=== PATIENT | female | born 1970 | race Caucasian/White ===

== ENCOUNTER 2019-11-18 13:52 | Outpatient (CLI) | payer BC, SELFPAY ==
--- NOTE | ~2019-11-18 | XR_ITS ---
XR cervical spine min 6V 11/18/2019 14:52 Indication: Cervicalgia Procedure: 7 views of the cervical spine Comparison: No prior studies for comparison. Findings: Normal cervical alignment. There are mild uncinate degenerative change at multiple levels. No significant disc narrowing. Normal cervical alignment. No prevertebral soft tissue swelling. Odont oid process within normal limits. Lung apices are normal. No fracture or malalignment. Impression: 1: Mild cervical spondylosis. Reviewed, dictated and finalized at location A. A MAKER Impression: 1: Mild cervical spondylosis.
== END 2019-11-18 13:53 | disposition home or self-care (01) ==
PROVIDERS: Visit Provider Nurse Practitioner Family
DX: M47.892 Other spondylosis, cervical region (principal)
CPT/HCPCS: 72052

== ENCOUNTER → 2021-03-11 07:28 | Outpatient (CLI) | payer BC, SELFPAY ==
[2021-03-11 19:22] LABS: SARS-CoV-2 RNA PCR Negative
== END ==
PROVIDERS: PCP Internal Medicine; Visit Provider Internal Medicine Gastroenterology
DX: Z01.812 Encounter for preprocedural laboratory examination (principal); Z20.822 Contact with and (suspected) exposure to COVID-19
CPT/HCPCS: C9803; U0003; U0005

== ENCOUNTER 2021-03-14 00:48 | Day surgery (SDC) | payer BC, SELFPAY ==
[2021-03-04 10:42] VITALS: BMI 23.3
[2021-03-14 08:03] VITALS: BP 111/69; PULSE 50; RESP 16; TEMP 36.6; O2SAT 100; BMI 22.8
[2021-03-14] MEDS: LACTATED RINGERS 1,000 ML 150 ML IV CONT (08:30)
--- NOTE | 2021-03-14 08:45 | WPDANESEPPF ---
Anes - Initial Pre Proc Eval Procedure: Operation Date: 03/14/21 09:00 Proposed Procedures p Esophagogastroduodenoscopy & Screening Colonoscopy - Wicho Morris MD Date/Time: 03/14/21 08:45 Surgeon: Wicho Morris MD Pre Op Diagnosis: neoplasm screeing, Nausea, Vomiting Patient Data Age: 50 Gender: F Height: 5 ft 2 in Weight: 56.5 kg Last Vital Signs Temp 36.6 C 03/14/21 08:03 Pulse 50 L 03/14/21 08:03 Resp 16 03/14/21 08:03 BP 111/69 03/14/21 08:03 Pulse Ox 100 03/14/21 08:03 Allergies Allergy/AdvReac Type Severity Reaction Status Date / Time No Known Allergies Allergy Verified 03/14/21 07:58 Home Medications Medication Instructions Recorded Confirmed Type cetirizine 10 mg tablet 10 mg PO DAILY #90 tablet 10/01/20 03/04/21 Rx meclizine 25 mg tablet 25 mg PO DAILY PRN #30 tablet 10/01/20 03/04/21 Rx ondansetron HCl 8 mg tablet 8 mg PO Q8H PRN #30 tablet 11/11/20 03/04/21 Rx amitriptyline 25 mg tablet 25 mg PO QHS #30 tablet 01/13/21 03/04/21 Rx sod picosulf 10 mg-magnes 3.5 160 ml PO BID #160 ml 01/20/21 Rx gram-citric 12 gram/160 mL oral solution fluticasone propionate 50 1 spray INTRANASAL DAILY #15.8 ml 02/16/21 03/04/21 Rx mcg/actuation nasal spray,suspension pantoprazole 20 mg tablet,delayed 20 mg PO DAILY #90 tablet 02/17/21 03/04/21 Rx release Patient hx anesthesia problems: none Family hx anesthesia problems: none PMFSH Past Medical History Medical History Allergies Anxiety Cholecystectomy planned 2016 Cyclic vomiting syndrome Headache Marijuana smoker Migraine Nausea and vomiting in adult Tonsillectomy planned 1977 Urine incontinence Bladder sling, 2017 Surgical History Surgical History History of hysterectomy 2016 Family History Family History Mother Breast cancer Parkinsons disease Social History Social History Smoking status: Never smoker Alcohol intake: former Substance use: current Substance use type: marijuana Other substance usage details: 3-4 TIMES PER WEEK Living arrangements: with family Spiritual care concerns: No Anes - Eval Final PreProcedure Day of Procedure 03/14/21 08:45 Patient weight: normal Heart: regular rate and rhythm Lungs: clear to auscultation Airway: Mallampati scale class II Neurological: alert and oriented Last oral intake: >/= 8 hours ASA classification: II Emergent: no Anesthetic plan: proceed Anesthesia type and monitoring: general GIVS and standard monitoring Informed Consent: The patient's anesthetic plan and its attendant risks and benefits were discussed with the patient/family/POA. Questions were solicited and answers provided to the satisfaction of the patient/family/POA.
--- NOTE | 2021-03-14 08:55 | PM.HPGS ---
History of Present Illness History of Present Illness Consent: Risks, benefits, and alternatives have been discussed and questions answered. Patient agrees to proceed with procedure. Chief complaint: neoplasm screeing, Nausea, Vomiting Narrative: Beryl Farfan is a 50 year old female with history of cyclic vomiting better with zofran and elavil, also needs screening colonoscopy (never had one) Review of Systems Constitutional: Constitutional: Denies headache(s) and Denies weakness Eyes: Eyes: Denies blurry vision ENT: Reports Normal hearing present, Denies headache(s) and Denies neck pain Cardiovascular: Cardiovascular: Denies chest pain and Denies dyspnea Respiratory: Respiratory: Denies dyspnea Gastrointestinal: Gastrointestinal: Reports no additional gastrointestinal complaints Genitourinary: Genitourinary: Denies dysuria Musculoskeletal: Musculoskeletal: Denies neck pain Integumentary/Breasts: Skin/Breast: Denies dry skin Neurologic: Reports Normal hearing present, Denies headache(s) and Denies weakness Psychiatric: Psychiatric: Denies anxiety Endocrine: Endocrine: Denies change in body appearance Hematologic/Lymphatic: Hematologic/Lymphatic: Denies easy bleeding Allergic/Immunologic: Allergic/Immunologic: Denies urticaria PMFSH Past Medical History Medical History Allergies Anxiety Cholecystectomy planned 2016 Cyclic vomiting syndrome Headache Marijuana smoker Migraine Nausea and vomiting in adult Tonsillectomy planned 1977 Urine incontinence Bladder sling, 2017 Surgical History Surgical History History of hysterectomy 2017 Family History Family History Mother Breast cancer Parkinsons disease Social History Social History Smoking status: Never smoker Alcohol intake: former Substance use: current Substance use type: marijuana Other substance usage details: 3-4 TIMES PER WEEK Living arrangements: with family Spiritual care concerns: No Meds Home Medications and Allergies Home Medications Medication Instructions Recorded Confirmed Type cetirizine 10 mg tablet 10 mg PO DAILY #90 tablet 10/01/20 03/04/21 Rx meclizine 25 mg tablet 25 mg PO DAILY PRN #30 tablet 10/01/20 03/04/21 Rx ondansetron HCl 8 mg tablet 8 mg PO Q8H PRN #30 tablet 11/11/20 03/04/21 Rx amitriptyline 25 mg tablet 25 mg PO QHS #30 tablet 01/13/21 03/04/21 Rx sod picosulf 10 mg-magnes 3.5 160 ml PO BID #160 ml 01/20/21 Rx gram-citric 12 gram/160 mL oral solution fluticasone propionate 50 1 spray INTRANASAL DAILY #15.8 ml 02/16/21 03/04/21 Rx mcg/actuation nasal spray,suspension pantoprazole 20 mg tablet,delayed 20 mg PO DAILY #90 tablet 02/17/21 03/04/21 Rx release Allergies Allergy/AdvReac Type Severity Reaction Status Date / Time No Known Allergies Allergy Verified 03/14/21 07:58 Vital Signs Vital Signs - 24 hr 03/14/21 08:03 Temperature 97.8 F Pulse Rate 50 L Respiratory Rate 16 Blood Pressure 111/69 Pulse Oximetry 100 Exam Const: General: comfortable and no acute distress HENMT: General nose exam: Normal nares present Eyes: General: appearance normal, both eyes and all related structures Neck: Neck: no JVD Resp: Auscultation: clear to auscultation bilaterally Cardio: Rate: regular rate Rhythm: regular rhythm GI: Inspection: non-distended GI Palp: Yes Soft to palpation Skin: General skin exam: normal color Neuro: General: gait normal Speech: normal speech Extrem: General: normal to inspection Psych: Mental Status: mental status grossly normal Assessment and Plan Assessment and plan (1) Nausea and vomiting in adult: Code(s): R11.2 - Nausea with vomiting, unspecified Status: Acute Ass
[2021-03-14 09:43] VITALS: BP 112/65; PULSE 49; RESP 16; O2SAT 100
[2021-03-14 09:53] VITALS: BP 109/67; PULSE 54; RESP 16; O2SAT 100
[2021-03-14 10:03] VITALS: BP 122/69; PULSE 52; RESP 12; O2SAT 100
== END 2021-03-14 10:19 | disposition home or self-care (01) ==
PROVIDERS: PCP Internal Medicine; Visit Provider Internal Medicine Gastroenterology
PROC: 0DJ08ZZ Inspection of Upper Intestinal Tract, Via Natural or Artificial Opening Endoscopic (ICD-10-PCS; CPT 43235; principal; 2021-03-14 09:00)
DX: Z12.11 Encounter for screening for malignant neoplasm of colon (principal); D12.2 Benign neoplasm of ascending colon; D12.5 Benign neoplasm of sigmoid colon; K29.50 Unspecified chronic gastritis without bleeding; R11.15 Cyclical vomiting syndrome unrelated to migraine; G43.909 Migraine, unspecified, not intractable, without status migrainosus; F41.9 Anxiety disorder, unspecified; F12.90 Cannabis use, unspecified, uncomplicated; Z90.710 Acquired absence of both cervix and uterus
CPT/HCPCS: 45385; 43239; 88305; J2704; J7120

== ENCOUNTER 2024-07-29 08:56 | Outpatient (CLI) | payer BC, SELFPAY ==
[2024-07-30 19:08] LABS: FSH 88.7 mIU/mL
== END 2024-07-29 08:57 | disposition home or self-care (01) ==
LOC: ANHGOSHLAB 08:57
PROVIDERS: PCP Internal Medicine; Visit Provider Internal Medicine
DX: N95.1 Menopausal and female climacteric states (principal)
CPT/HCPCS: 36415; 83001

== ENCOUNTER 2025-03-23 01:01 | Day surgery (SDC) | payer BC, SELFPAY ==
[2025-03-18 10:31] VITALS: BMI 24.5
--- OUTSIDE RECORDS SUMMARY | 2025-03-23 01:04 | XMS_ITS | Referral Summary ---
Author Organization [facility] al Address [address] [place] [address] Care Team Providers Care Interpersonal Communications Professor Name Role Phone Jose Recinos DO Primary Care Provider [phone] Jose Recinos DO Unavailable [phone] Allergies Active Allergy Reactions Criticality Noted Date Comments Other Other (See comments),Unknown Low 021 Reaction: Medications fluticasone propionate (FLONASE) 50 mcg/actuation nasal spray Administer 2 sprays into affected nostril(s) daily 8 Active cetirizine (ZyrTEC) 5 mg tablet Take 1 tablet (5 mg total) by mouth daily Active atorvastatin (LIPITOR) 20 mg tablet Take 1 tablet (20 mg total) by mouth nightly 30 tablet 4 Active Active Problems Problem Noted Date Diagnosed Date Elevated troponin 02/28/2024 Nausea with vomiting 12/18/2016 Weight loss 12/18/2016 Jejunostomy present 12/18/2016 Immunizations Immunization Administration Dates Next Due Influenza, Quadrivalent, Spl it, Preservative Free, Intramuscular 12/25/2020(Deferred: Patient Refused) Social History Tobacco Use Types Packs/Day Years Used Date Smoking Tobacco: Former Cigarettes Cigars Smokeless Tobacco: Never Tobacco Cessation:Counseling Given: Not Answered AUDIT-C Answer Date Recorded Q1: How often do you have a drink containing alc ohol? Monthly or less 02/28/2024 Q2: How many drinks containi ng alcohol do you have on a typical day when you are drinking? 1 or 2 02/28/2024 Q3: How often do you have si x or more drinks on one occasion? Never 02/28/2024 Overall Financial Resource Strain (CARDIA) Answe r Date Recorded How hard is it for you to pa y for the very basics like food, housing, medical care, and heating? Not hard at all 12/24/2020 PRAPARE - Transportation Answer Date Re corded In the past 12 months, has l ack of transportation kept you from medical appointments or from getting medications? No 02/2021 In the past 12 months, has l ack of transportation kept you from meetings, work, or from getting things needed for daily living? No 12/24/2020 Personal Safety Answer Date Recorded Have you ever been in or are you currently in a harmful physical or emotional relationship or is someone making you feel afraid or unsafe? Denies 02/28/2024 Comments Unknown Sex and Gender Information Value Date Recorded Sex Assigned at Not on file Legal Sex Female 5:46 PM CDT Gender Identity Not on file Sexual Orientation Not on file Last Filed Vital Signs Vital Sign Reading Time Taken Comments Blood Pressure 126/51 02/28/2024 3:00 PM CDT Pulse 60 02/28/2024 4:00 PM CDT Temperature 36.4 C (97.6 F) 02/28/2024 3:00 PM CDT Respiratory Rate 18 02/28/2024 3:00 PM CDT Oxygen Saturation 98% 02/28/2024 3:00 PM CDT Inhaled Oxygen Concentration - - Weight 58.7 kg (129 lb 8 oz) 02/28/2024 4:55 AM CDT Height 160 cm (5' 3) 02/28/2024 4:55 AM CDT Body Mass Index 22.94 02/28/2024 4:55 AM CDT Plan of Treatment Not on file Procedures Procedure Name Priority Date/Time Associated Diagnosis Comments DIAGNOSTIC MAMMOGRAM BILATERAL W KRISTOPHER Routine 02/22/2016 8:59 AM CDT from Last 3 Months or Most Recently Relevant to Health Maintenance Results * Diagnostic Mammogram Bilateral W Kristopher (02/22/2016 8:59 AM CDT) Anatomical Region Laterality Modality Breast Bilateral Mammography 02/22/2016 8:59 AM CDT Narrative 02/22/2016 11:33 AM CDT TONIE GONSALEZ M.D. [place], FINAL REPORT The radiology attending physician has personally reviewed this study, and has reviewed and/or edited this written report and agrees with it. ACC# Date Time Exam [id number] February 22, 2016 08:59:00 [facility] [address] Diag Mammogram Bilateral Technologist(s): Analy Rivers; ; [id number] February 22, 2016 08:59:00 [facility] [address] Dig Breast Kristopher Mani Technologist(s): Analy Rivers; ; [id number] February 22, 2016 09:38:00 [facility] [address] Breast US unilateral, ltd L EXAMINATION: BILATERAL FULL FIELD DIGITAL DIAGNOSTIC MAMMOGRAM WITH CAD, DIGITAL BREAST TOMOSYNTHESIS BILATERAL AND LEFT BREAST SONOGRAM HISTORY: 45-year-old woman complaining of palpable area of concern within the left breast. MAMMOGRAM TECHNIQUE: Full field digital craniocaudal and mediolateral oblique views were obtained. Computer Aided Detection was performed with [employer].3 version 9.3. Digital breast tomosynthesis bilateral COMPARISON: 2011 and 2008. BREAST PARENCHYMAL COMPOSITION: The breasts are heterogeneously dense, which may obscure small masses. MAMMOGRAM FINDINGS: There is a subcentimeter focal asymmetry identified within the upper outer quadrant of the left breast posterior depth. There is no abnormality identified on mammogram in the area of palpable concern which was marked with a skin surface marker. There is no suspicious finding within the right breast. SONOGRAM FINDINGS: Directed sonogram of the area of palpable concern within the left breast was performed. No focal abnormal solid or cystic lesion is identified in the reported area of palpable concern. Directed sonogram of the 12:30 left breast about 4 cm above the nipple demonstrated a a benign cyst. Additional scattered cysts were also noted. Directed physical examination of the area of concern demonstrates no definite suspicious palpable abnormality at this time. IMPRESSION: 1) No suspicious mammographic or sonographic findings are identified in the reported area of palpable concern. Any further evaluation at this time should be based on clinical assessment. Continued follow-up breast physical examination is recommended. 2) Incidentally noted were scattered benign cysts. These were not located in the area of palpable concern. OVERALL FINAL ASSESSMENT: BI-RADS Category 2: Benign finding. Requested By: Dictated By: WIN BLOUNT on Feb 22 2016 10:07A This document has been electronically signed by: TONIE GONSALEZ M.D. on Feb 22 2016 11:33A [id number] Procedure Note Provider, MD Ebonie - 02/26/2017 TONIE GONSALEZ M.D. [place], FINAL REPORT The radiology attending physician has personally reviewed this study, and has reviewed and/or edited this written report and agrees with it. ACC# Date Time Exam [id number] February 22, 2016 08:59:00 [facility] [address] Diag Mammogram Bilateral Technologist(s): Analy Rivers; ; [id number] February 22, 2016 08:59:00 [facility] [address] Dig Breast Kristopher Mani Technologist(s): Analy Rivers; ; [id number] February 22, 2016 09:38:00 [facility] [address] Breast US unilateral, ltd L EXAMINATION: BILATERAL FULL FIELD DIGITAL DIAGNOSTIC MAMMOGRAM WITH CAD, DIGITAL BREAST TOMOSYNTHESIS BILATERAL AND LEFT BREAST SONOGRAM HISTORY: 45-year-old woman complaining of palpable area of concern within the left breast. MAMMOGRAM TECHNIQUE: Full field digital craniocaudal and mediolateral oblique views were obtained. Computer Aided Detection was performed with [employer] version 9.3. Digital breast tomosynthesis bilateral COMPARISON: 2011 and 2008. BREAST PARENCHYMAL COMPOSITION: The breasts are heterogeneously dense, which may obscure small masses. MAMMOGRAM FINDINGS: There is a subcentimeter focal asymmetry identified within the upper outer quadrant of the left breast posterior depth. There is no abnormality identified on mammogram in the area of palpable concern which was marked with a skin surface marker. There is no suspicious finding within the right breast. SONOGRAM FINDINGS: Directed sonogram of the area of palpable concern within the left breast was performed. No focal abnormal solid or cystic lesion is identified in the reported area of palpable concern. Directed sonogram of the 12:30 left breast about 4 cm above the nipple demonstrated a a benign cyst. Additional scattered cysts were alsonoted. Directed physical examination of the area of concern demonstrates no definite suspicious palpable abnormality at this time. IMPRESSION: 1) No suspicious mammographic or sonographic findings are identified in the reported area of palpable concern. Any further evaluation at this time should be based on clinical assessment. Continued follow-up breast physical examination is recommended. 2) Incidentally noted were scattered benign cysts. These were not located in the area of palpable concern. OVERALL FINAL ASSESSMENT: BI-RADS Category 2: Benign finding. Requested By: Dictated By: WIN BLOUNT on Feb 22 2016 10:07A This document has been electronically signed by: TONIE GONSALEZ M.D. on Feb 22 2016 11:33A [id number] Historical Provider MD [facility] MAMMO PROCEDURES Jojo l Result from Last 3 Months or Most Recently Relevant to Health Maintenance Insurance [employer] [place] [employer] [place] [employer] [place] Advance Directives For more information, please contact: [phone] * Full Code (Latest Code Status on File) Date Activated Date Inactivated Comments 02/28/2024 4:59 AM 02/28/2024 9:20 PM * Full Code Date Activated Date Inactivated Comments 12/24/2020 8:12 AM 12/25/2020 7:01 PM Care Teams Interpersonal Communications Professor Relationship Specialty Start Date End Date Jose Recinos DO PCP - General 01/19/17 Jose Recinos DO 01/19/17
--- OUTSIDE RECORDS SUMMARY | 2025-03-23 01:04 | XMS_ITS | CONTINUITY OF CARE DOCUMENT ---
Author Name sammie cochran Address Unknown Organization [facility] Address [address] [address] [place] [address] Phone [phone] Care Team Providers Care Utility Clerk Name Role Phone Paola Daniels MD Unavailable Paola Daniels MD Unavailable [phone] INS[employer]ANCE PROVID[employer] Payer name Policy type / Coverage type [place] red democrat ID [facility] [id number]
--- OUTSIDE RECORDS SUMMARY | 2025-03-23 01:04 | XMS_ITS | Clinical Summary ---
Author Organization [facility] al Address [address] [place] [address] Care Team Providers Care Ivory Carver Name Role Phone Jose Recinos DO Primary Care Provider [phone] Jose Recinos DO Unavailable [phone] Allergies Active Allergy Reactions Criticality Noted Date [...] it, Preservative Free, Intramuscular 12/25/2020(Deferred: Patient Refused) Surgical History Surgery Date Site/Laterality Comments NJ TUBE PLACEMENT 12/01/2016 N/A NJ TUBE PLACEMENT 12/01/2016 N/A HYSTERECTOMY Family History Medical History Relation Name Comments Breast cancer Mother Parkinsonism Mother Uterine cancer Sister Relation Name Status Comments Mother Sister Social History Tobacco Use Types Packs/Day Years [...] on file Sexual Orientation Not on file Obstetrics History Last Filed Vital Signs Vital Sign Reading [...] 02/28/2024 4:55 AM CDT Plan of Treatment Health Maintenance Due Date Last Done Comments Colon Cancer Screening-Colonoscopy 1968 Depression Screening 1968 Hepatitis C Screening 1968 DTaP/Tdap/Td Vaccine (1 - Tdap) 1979 Hepatitis B Screening 1986 Regular Well Visit/Exam 18-64 1986 Breast Cancer Screening-Mammogram 03/26/2018 03/26/2017, 02/22/2016 Zoster Vaccine (1 of 2) 2018 Influenza Vaccine (Season Ended) 2025 09/21/2017, 11/27/2016 Pneumococcal vaccine <65 Aged Out No longer eligible based on patient's age to complete this topic Procedures Procedure Name Priority Date/Time Associated Diagnosis [...] agrees with it. ACC# Date Time Exam [id number] February 22, 2016 08:59:00 [facility] [address] Diag Mammogram Bilateral Technologist(s): Analy Rivers; ; [id number] February 22, 2016 08:59:00 [facility] [address] Dig Breast Kristopher Mani Technologist(s): Analy Rivers; ; [id number] February 22, 2016 09:38:00 [facility] [address] Breast US unilateral, ltd L EXAMINATION: BILATERAL FULL FIELD DIGITAL DIAGNOSTIC MAMMOGRAM WITH CAD, DIGITAL BREAST TOMOSYNTHESIS BILATERAL AND LEFT BREAST SONOGRAM HISTORY: 45-year-old woman complaining of palpable area of concern within the left breast. MAMMOGRAM TECHNIQUE: Full field digital craniocaudal and mediolateral oblique views were obtained. Computer Aided Detection was performed with [employer] version 9.3. Digital breast tomosynthesis bilateral COMPARISON: [...] GONSALEZ M.D. on Feb 22 2016 11:33A [id number] Procedure Note Provider, MD Ebonie - 02/26/2017 TONIE GONSLAEZ M.D. [place], FINAL REPORT The radiology attending physician has personally reviewed this study, and has reviewed and/or edited this written report and agrees with it. ACC# Date Time Exam [id number] February 22, 2016 08:59:00 [facility] [address] Diag Mammogram Bilateral Technologist(s): Analy Rivers; ; [id number] February 22, 2016 08:59:00 [facility] [address] Dig Breast Kristopher Mani Technologist(s): Analy Rivers; ; [id number] February 22, 2016 09:38:00 [facility] [address] Breast US unilateral, ltd L EXAMINATION: BILATERAL FULL FIELD DIGITAL DIAGNOSTIC MAMMOGRAM WITH CAD, DIGITAL BREAST TOMOSYNTHESIS BILATERAL AND LEFT BREAST SONOGRAM HISTORY: 45-year-old woman complaining of palpable area of concern within the left breast. MAMMOGRAM TECHNIQUE: Full field digital craniocaudal and mediolateral oblique views were obtained. Computer Aided Detection was performed with [employer] version 9.3. Digital breast tomosynthesis bilateral COMPARISON: [...] GONSALEZ M.D. on Feb 22 2016 11:33A [id number] Historical Provider MD [facility] MAMMO PROCEDURES Jojo l Result from Last 3 Months or Most Recently Relevant to Health Maintenance Insurance [facility] Member Subscriber Plan / Payer (Ef fective 2020-Present) Name:Beryl Farfan Relation to Subscriber:Self Name:Beryl Farfan Payer ID:[id number] (NAIC) Group ID:[id number] Type:BC OTHER Address: [address] [place] [id number] [place] Advance Directives For more information, please contact: [phone] * Full Code (Latest Code Status on File) Date Activated Date Inactivated Comments 02/28/2024 4:59 AM 02/28/2024 9:20 PM * Full Code Date Activated Date Inactivated Comments 12/24/2020 8:12 AM 12/25/2020 7:01 PM Care Teams Ivory Carver Relationship Specialty Start Date End Date Jose Recinos DO PCP - General 01/19/17 oJse Recinos DO 01/19/17
--- OUTSIDE RECORDS SUMMARY | 2025-03-23 01:04 | XMS_ITS | Data Portability ---
Author Organization [facility] Address [address] [place] [address] Assessment No assessment recorded. Plan of Treatment Reminders Order Date Submit Date Provider Last Modified By Organization Details Last Modified Time Details Appointments None recorded. Lab pap, IG + HPV, cervical 2016 017 [facility], [address] [place] [address], [address], [place], [address], 7 09:22:26 bacterial vaginosis + vaginitis panel, vaginal 2016 017 [facility], [address] [facility], [address], [place], [address], 7 09:13:46 HSV (1+2) DNA, qual, PCR, unspecifi ed specimen 2016 017 [facility], [address] [place] [address], [address], [place], [address], 7 09:13:46 culture, vaginal/r ectal, streptoco ccus group B 2016 017 [facility], [address] [place] [address], [address], [place], [address], 7 09:13:47 urinalysi s, dipstick 2016 017 [facility] In-Office Order, Internal Use Only DO Not Attach Compendium DO Not Attach Compendium, Do Not Delete/merge, [id number] 7 05:01:58 urinalysi s, dipstick 2015 016 [email or web address] In-Office Order, Internal Use Only DO Not Attach Compendium DO Not Attach Compendium, Do Not Delete/merge, [id number] 6 17:58:30 pap, IG + HPV, cervical 2015 016 [facility], [address] [facility] [address] [facility], [address], [place], [address], 6 20:11:11 culture, urine 2015 016 [facility], [address] [facility] [address] [facility], [address], [place], [address], 6 06:10:09 Referral general surgeon referral - left breast mass, FH of breast CA-MOM 2015 016 [email or web address] Nadeen Guevara MD (Hematology&O ncology), [address] [facility], [place], [address], 6 17:13:59 urogyneco logist referral - BJ 2015 016 [email or web address] Mitch Koenig MD, [address], [place], [address], 7 12:44:34 Procedures None recorded. Surgeries None recorded. Imaging MAMMO, diagnosti c, digital, bilateral 2016 017 [email or web address] [facility], [address] [place], [address], 7 17:43:17 MAMMO, diagnosti c, digital, bilateral - left breast mass, FH of breast CA-MOM 2015 016 [email or web address] [facility], [address], [address], [address], 6 09:19:15 Medication Orders calcium 600 mg (as carbonate )-vitamin D3 20 mcg (800 unit) tablet 2016 017 [facility], [address] [place] [address], [id number], 7 15:48:43 multivita min tablet 2016 017 [facility], [address] [place] [address], [id number], 7 15:48:27 Myrbetriq 25 mg tablet,ex tended release 2015 016 [facility], [address] [place] [address], [id number], 6 17:58:34 Contrave 8 mg-90 mg tablet,ex tended release 2015 016 [facility] #16315, [address] [place] [address], [id number], 6 17:58:31 Patient TargetsNo targets recorded. Patient Instructions Encounter Date Encounter Id Patient Instructions Last Modified By Organization Details Last Modified Time 02/16/2016 [id number] When You Want to Lose Weight: Care Instructions [email or web address] Not available 02/17/2016 09:26:20 breast pain: care instructions [email or web address] Not available 02/16/2016 17:58:30 breast lumps: care instructions [email or web address] Not available 02/16/2016 17:58:31 kegel exercises [email or web address] Not available 02/17/2016 09:26:20 learning about mood disorders [email or web address] Not available 02/16/2016 17:58:31 03/21/2017 [id number] kegel exercises Not available 03/21/2017 16:15:22 kegel exercises: care instructions Not available 03/21/2017 16:15:22 mammogram: about this test reggie Not available 03/21/2017 15:06:00 fibrocystic breast changes: care instructions reggie Not available 03/21/2017 15:47:10 Reason for Referral Urogynecologist Referral for Cystocele [facility] Referring Physician: Cristopher Huber, RESTORATION TECHNICIAN, Encounter Date: 02/16/2016 General Surgeon Referral for Breast lump left breast mass, FH of breast CA-MOM Referring Physician: Cristopher Huber RESTORATION TECHNICIAN, Encounter Date: 02/16/2016 Results Created Date Observation Date Name Description Value Unit Range Abnormal Flag Note LastModifiedBy Organization Detail LastModifiedTime 03/21/20 17 03/23/2017 urina lysis , dipst ick Leukocytes Trace Not Available In-Offi ce Order Internal Use Only DO Not Attach Compendium DO Not Attach Compendium, Do Not Delete/merge, [id number] 03/21/2017 14:30:25 03/21/20 17 03/23/2017 urina lysis , dipst ick Nitrite negati ve Not Available In-Office Order Internal Use Only DO Not Attach Compendium DO Not Attach Compendium, Do Not Delete/merge, [id number] 03/21/2017 14:30:25 03/21/20 17 03/23/2017 urina lysis , dipst ick Urobilinogen .2 Not Available In-Of fice Order Internal Use Only DO Not Attach Compendium DO Not Attach Compendium, Do Not Delete/merge, [id number] 03/21/2017 14:30:25 03/21/20 17 03/23/2017 urina lysis , dipst ick Protein Negati ve Not Available In-Office Order Internal Use Only DO Not Attach Compendium DO Not Attach Compendium, Do Not Delete/merge, [id number] 03/21/2017 14:30:25 03/21/20 17 03/23/2017 urina lysis , dipst ick pH 5.5 Not Available In-Office Order Internal Use Only DO Not Attach Compendium DO Not Attach Compendium, Do Not Delete/merge, [id number] 03/21/2017 14:30:25 03/21/20 17 03/23/2017 urina lysis , dipst ick Blood Negati ve Not Available In-Office Order Internal Use Only DO Not Attach Compendium DO Not Attach Compendium, Do Not Delete/merge, 03/21/2017 14:30:25 03/21/20 17 03/23/2017 urina lysis , dipst ick Specific Daggett 1.020 Not Available In-Off ice Order Internal Use Only DO Not Attach Compendium DO Not Attach Compendium, Do Not Delete/merge, 03/21/2017 14:30:25 03/21/20 17 03/23/2017 urina lysis , dipst ick Ketone Negati ve Not Available In-Office Order Internal Use Only DO Not Attach Compendium DO Not Attach Compendium, Do Not Delete/merge, 03/21/2017 14:30:25 03/21/20 17 03/23/2017 urina lysis , dipst ick Bilirubin Negati ve Not Available In-Office Order Internal Use Only DO Not Attach Compendium DO Not Attach Compendium, Do Not Delete/merge, 03/21/2017 14:30:25 03/21/20 17 03/23/2017 urina lysis , dipst ick Glucose Negati ve Not Available In-Office Order Internal Use Only DO Not Attach Compendium DO Not Attach Compendium, Do Not Delete/merge, 03/21/2017 14:30:25 02/16/20 16 02/16/2016 urina lysis , dipst ick Leukocytes Trace Not Available In-Offi ce Order Internal Use Only DO Not Attach Compendium DO Not Attach Compendium, Do Not Delete/merge, 02/16/2016 16:22:52 02/16/20 16 02/16/2016 urina lysis , dipst ick Nitrite negati ve Not Available In-Office Order Internal Use Only DO Not Attach Compendium DO Not Attach Compendium, Do Not Delete/merge, 02/16/2016 16:22:52 02/16/20 16 02/16/2016 urina lysis , dipst ick Urobilinogen .2 Not Available In-Of fice Order Internal Use Only DO Not Attach Compendium DO Not Attach Compendium, Do Not Delete/merge, 02/16/2016 16:22:52 02/16/20 16 02/16/2016 urina lysis , dipst ick Protein Negati ve Not Available In-Office Order Internal Use Only DO Not Attach Compendium DO Not Attach Compendium, Do Not Delete/merge, 02/16/2016 16:22:52 02/16/20 16 02/16/2016 urina lysis , dipst ick pH 6.5 Not Available In-Office Order Internal Use Only DO Not Attach Compendium DO Not Attach Compendium, Do Not Delete/merge, 02/16/2016 16:22:52 02/16/20 16 02/16/2016 urina lysis , dipst ick Blood Negati ve Not Available In-Office Order Internal Use Only DO Not Attach Compendium DO Not Attach Compendium, Do Not Delete/merge, 02/16/2016 16:22:52 02/16/20 16 02/16/2016 urina lysis , dipst ick Specific Daggett 1.020 Not Available In-Off ice Order Internal Use Only DO Not Attach Compendium DO Not Attach Compendium, Do Not Delete/merge, 02/16/2016 16:22:52 02/16/20 16 02/16/2016 urina lysis , dipst ick Ketone Negati ve Not Available In-Office Order Internal Use Only DO Not Attach Compendium DO Not Attach Compendium, Do Not Delete/merge, 02/16/2016 16:22:52 02/16/20 16 02/16/2016 urina lysis , dipst ick Bilirubin Negati ve Not Available In-Office Order Internal Use Only DO Not Attach Compendium DO Not Attach Compendium, Do Not Delete/merge, 02/16/2016 16:22:52 02/16/20 16 02/16/2016 urina lysis , dipst ick Glucose Negati ve Not Available In-Office Order Internal Use Only DO Not Attach Compendium DO Not Attach Compendium, Do Not Delete/merge, 02/16/2016 16:22:52 02/16/20 16 02/18/2016 cultu re, urine urine culture, routine FINAL REPORT Not Available [facility] ([facility]) [address], [place], [address], 02/19/2016 06:10:09 02/16/20 16 02/18/2016 cultu re, urine result 1 MELISSA Jaramillo MIXED UROGE NITAL WESLEY LESS THAN 10,00 0 COLON IES/M L Not Available [facility] ([facility]) [address] [facility], [place], [address], 02/19/2016 06:10:09 02/17/20 16 02/21/2016 pap, IG + HPV, cervi deanna diagnosis: MELISSA Jaramillo NEGAT ANCA FOR INTRA EPITH ELIAL LESIO N AND ILANA LEUNG . Not Available [facility] ([facility]) [address] [facility], [place], [address], 02/21/2016 20:11:11 02/17/20 16 02/21/2016 pap, IG + HPV, cervi deanna specimen adequacy: MELISSA T SATIS FACTO RY FOR EVALU ATION . ENDOC ERVIC AL AND/O R SQUAM OUS METAP LASTI C CELLS (ENDO CERVI DEANNA COMPO NENT) ARE PRESE NT. Not Available [facility] ([facility]) [address] [facility], [place], [address], 02/21/2016 20:11:11 02/17/20 16 02/21/2016 pap, IG + HPV, cervi deanna performed by: MELISSA OTT CYTOClint Jaramillo (ASCP ) Not Available [facility] ([facility]) [address] [place], [address], 02/21/2016 20:11:11 02/17/20 16 02/21/2016 pap, IG + HPV, cervi deanna . . Not Available [facility] ([facility]) [address] [place], [address], 02/21/2016 20:11:11 02/17/20 16 02/21/2016 pap, IG + HPV, cervi deanna note: MELISSA Jaramillo THE PAP SMEAR IS A SCREE JING TEST AMANDEEP PEDRAZA TO AID IN THE DETEC TION OF LALIT LIGNA NT AND MALIG NANT CONDI TIONS OF THE UTERI NE CERVI X. IT IS NOT A DIAGN OSTIC PROCE DURE AND SHOUL D NOT BE USED THE SOLE MEANS OF DETEC TING CERVI DEANNA CANCE R. BOTH FALSE -POSI TIVE AND FALSE -NEGA TIVE REPOR TS DO OCCUR . Not Available [facility] ([facility]) [address] [place], [address], 02/21/2016 20:11:11 02/17/20 16 02/21/2016 pap, IG + HPV, cervi deanna test methodology: COMMEN T THIS LIQUI D BASED THINP REP(R ) PAP TEST WAS SCREDomingo PEDRAZA WITH THE USE OF AN IMAGE GUIDE Brenna Dennison. Not Available [facility] ([facility]) [address] [facility], [place], [address], 02/21/2016 20:11:11 02/17/20 16 02/21/2016 pap, IG + HPV, cervi deanna HPV aptima NEGATI VE negati ve THIS TEST DETEC TS FOURT EEN HIGH- RISK HPV TYPES (16/1 8/31/ 33/35 /39/4 5/ 51/52 /56/5 8/59/ 66/68 ) WITHO UT DIFFE RENTI ATION . Not Available [facility] ([facility]) [address] [place], [address], 02/21/2016 20:11:11 03/21/20 17 03/23/2017 pap, IG + HPV, cervi deanna diagnosis: COMMEN T NEGAT ANCA FOR INTRA EPITH ELIAL LESIO N AND MALIG MADHU . Not Available [facility] ([facility]) [address] [place], [address], 03/23/2017 09:22:26 03/21/20 17 03/23/2017 pap, IG + HPV, cervi deanna specimen adequacy: COMMEN T SATIS FACTO RY FOR EVALU ATION . NO ENDOC ERVIC AL COMPO NENT IS IDENT IFIED . Not Available [facility] ([facility]) [address] [facility], [place], [address], 03/23/2017 09:22:26 03/21/20 17 03/23/2017 pap, IG + HPV, cervi deanna clinician provided ICD10: MELISSA Jaramillo Z11.5 1 Not Available [facility] ([facility]) [address] [facility], [place], [address], 03/23/2017 09:22:26 03/21/20 17 03/23/2017 pap, IG + HPV, cervi deanna performed by: MELISSA Siddiqui, CYTOT JOHAN Jaramillo (ASCP ) Not Available [facility] ([facility]) [address] [place], [address], 03/23/2017 09:22:26 03/21/20 17 03/23/2017 pap, IG + HPV, cervi deanna . . Not Available [facility] ([facility]) [address] [place], [address], 03/23/2017 09:22:26 03/21/2003/23/2017 pap, IG + HPV, cervi deanna note: MELISSA Jaramillo THE PAP SMEAR IS A SCREE JING TEST DESIG MILO TO AID IN THE DETEC TION OF LALIT LIGNA NT AND MALIG NANT CONDI TIONS OF THE UTERI NE CERVI X. IT IS NOT A DIAGN OSTIC PROCE DURE AND SHOUL D NOT BE USED THE SOLE MEANS OF DETEC TING CERVI DEANNA CANCE R. BOTH FALSE -POSI TIVE AND FALSE -NEGA TIVE REPOR TS DO OCCUR . Not Available [facility] ([facility]) [address] [facility], [place], [address], 03/23/2017 09:22:26 03/21/20 17 03/23/2017 pap, IG + HPV, cervi deanna test methodology: MELISSA Jaramillo THIS LIQUI D BASED THINP REP(R ) PAP TEST WAS SCREE MILO WITH THE USE OF AN IMAGE GUIDE Brenna SYSTDomingo Dennison. Not Available [facility] ([facility]) [address] [facility], [place], [address], 03/23/2017 09:22:26 03/21/20 17 03/23/2017 pap, IG + HPV, cervi deanna HPV aptima NEGATI VE negati ve THIS TEST DETEC TS FOURT EEN HIGH- RISK HPV TYPES (16/1 8/31/ 33/35 /39/4 5/ 51/52 /56/5 8/59/ 66/68 ) WITHO UT DIFFE RENTI ATION . Not Available [facility] ([facility]) [address] [facility], [place], [address], 03/23/2017 09:22:26 03/21/20 17 03/23/2017 bacte rial vagin osis + vagin itis panel , vagin al atopobium vaginae LOW - 0 score Not Available [facility] ([facility]) [address] [place], [address], 03/24/2017 09:13:46 03/21/20 17 03/23/2017 bacte rial vagin osis + vagin itis panel , vagin al bvab 2 MODERA TE - 1 score Not Available [facility] ([facility]) [address] [place], [address], 03/24/2017 09:13:46 03/21/20 17 03/23/2017 bacte rial vagin osis + vagin itis panel , vagin al megasphaera 1 LOW - 0 score CALCU LATE TOTAL SCORE BY ADDIN G THE 3 INDIV IDUAL BACTE RIAL VAGIN OSIS (BV) MARKE R SCORE S TOGET HER. TOTAL SCORE IS INTER PRETE D FOLLO WS: TOTAL SCORE 0-1: INDIC ATES THE ABSEN CE OF BV. TOTAL SCORE 2: INDET ERMIN ATE FOR BV. ADDIT IONAL CLINI DEANNA DATA SHOUL D BE EVALU ATED TO ESTAB TERRY A DIAGN OSIS. TOTAL SCORE 3-6: INDIC ATES THE PRESE NCE OF BV. THIS TEST WAS DEVEL OPED AND ITS PERFO RMANC E BENJAMIN CTERI STICS DETER MINED BY [employer]. IT HAS NOT BEEN CLEAR ED OR APPRO HERMES BY THE FOOD AND DRUG ADMIN ISTRA TION. THE FDA HAS DETER MINED THAT SUCH CLEAR ANCE OR APPRO RANJEET IS NOT NECES DHAVAL. Not Available [facility] ([facility]) [address] [place], [address], 03/24/2017 09:13:46 03/21/2003/23/2017 bacte rial vagin osis + vagin itis panel , vagin al wesley albicans, NANCI NEGATI VE negati ve Not Available [facility] ([facility]) [address] [place], [address], 03/24/2017 09:13:46 03/21/2003/23/2017 bacte rial vagin osis + vagin itis panel , vagin al wesley glabrata, NANCI NEGATI VE negati ve THIS TEST WAS DEVEL OPED AND ITS PERFO RMANC E BENJAMIN CTERI STICS DETER MINED BY [employer]. IT HAS NOT BEEN CLEAR ED OR APPRO HERMES BY THE FOOD AND DRUG ADMIN ISTRA TION. THE FDA HAS DETER MINED THAT SUCH CLEAR ANCE OR APPRO RANJEET IS NOT NECES DHAVAL. Not Available [facility] ([facility]) [address] [facility], [place], [address], 03/24/2017 09:13:46 03/21/2003/24/2017 bacte rial vagin osis + vagin itis panel , vagin al trich vag by NANCI POSITI VE negati ve abnormal Not Available [facility] ([facility]) [address] [place], [address], 03/24/2017 09:13:46 03/21/2003/24/2017 bacte rial vagin osis + vagin itis panel , vagin al chlamydia trachomatis, NANCI NEGATI VE negati ve Not Available [facility] ([facility]) [address] [place], [address], 03/24/2017 09:13:46 03/21/20 17 03/24/2017 bacte rial vagin osis + vagin itis panel , vagin al neisseria gonorrhoeae, NANCI NEGATI VE negati ve Not Available [facility] ([facility]) [address] [place], [address], 03/24/2017 09:13:46 03/21/20 17 03/23/2017 HSV (1+2) DNA, qual, PCR, unspe cifie d speci men hsv 1 NANCI NEGATI VE negati ve Not Available [facility] ([facility]) [address] [place], [address], 03/24/2017 09:13:46 03/21/20 17 03/23/2017 HSV (1+2) DNA, qual, PCR, unspe cifie d speci men hsv 2 NANCI NEGATI VE negati ve Not Available [facility] ([facility]) [address] [place], [address], 03/24/2017 09:13:46 03/21/20 17 03/23/2017 cultu re, vagin al/re ctal, strep tococ cus group B strep gp B NANCI NEGATI VE negati ve CENTE RS FOR DISEA SE CONTR OL AND PREVE NTION (CDC) AND AMERI CAN CONGR ESS OF OBSTE TRICI ANS AND GYNEC OLOGI STS (ACOG ) GUIDE LINES FOR PREVE NTION OF PERIN ATAL GROUP B STREP TOCOC DEANNA (GBS) DISEA SE SPECI FY CO-CO LLECT ION OF A VAGIN AL AND RECTA L SWAB SPECI MEN TO MAXIM IZE SENSI TIVIT Y OF GBS DETEC TION. PER THE CDC AND ACOG, SWABB ING BOTH THE LOWER VAGIN A AND RECTU M SUBST ANTIA LLY INCRE ASES THE YIELD OF DETEC TION JADYN RED WITH SAMPL ING THE VAGIN A ALONE . PENIC ILLIN G, AMPIC ILLIN , OR CEFAZ RAMONA ARE INDIC ATED FOR INTRA PARTU M PROPH YLAXI S OF PERIN ATAL GBS COLON IZATI ON. REFLE X SUSCE PTIBI LITY TESTI NG SHOUL D BE PERFO RMED PRIOR TO USE OF CLIND AMYCI N ONLY ON GBS ISOLA NATALY FROM PENIC ILLIN -IRIS RGIC WOMEN WHO ARE CONSI DERED A HIGH RISK FOR ANAPH YLAXI S. TREAT MENT WITH VANCO MYCIN WITHO UT ADDIT IONAL TESTI NG IS WARRA NTED IF RESIS TANCE TO CLIND AMYCI N IS NOTED . Not Available [facility] ([facility]) [address] [facility], [place], [address], 03/24/2017 09:13:47 02/28/20 16 02/28/2016 diagn ostic bilat eral mammo gram No observ ation record ed. [email or web address] Not Available 03/21 16:37:38 03/26/20 17 03/26/2017 MAMMO , scree jing, bilat eral No observ ation record ed. [facility] [address] [place], [address], 03/27/2017 14:12:50 Result Notes None recorded. Problems Name Problem SNOMED Code Status Onset Date Resolution Date Notes Provider Name and Address Organization Details Recorded Time Breast lump 91402709 Active Cristopher lau [place] [facility] 6 02:56:40 Depressive disorder 94103482 [place] Crist[place] lau [place] [facility] 6 02:56:40 Bladder muscle dysfunction - overactive Active Crist[place] lau [place] [facility] 6 02:56:40 Cystocele 330853732 Active Crist[place] lau [place] [facility] 6 02:56:40 Overweight 495044783 Completed 06/20/2017 Cristopher lau [place] [facility] 7 19:15:46 Fibrocystic disease of breast 42686427 Active 2016 Cristopher lau [place] [facility] 7 15:47:28 Infection by Trichomonas 27743463 Active 2016 [place] [facility] 7 11:49:45 Problem Notes None recorded. Procedures Surgical History Date Name Laterality Status Provider Name and Address Organization Details Recorded Time 02/22/20 16 Most Recent Mammogram completed Yaima Dunn MA [facility] 03/21/2017 15:17:31 02/16/20 16 Date of Last Pap Smear completed Teresa Batres [facility] 03/21/2017 14:29:50 10/22/19 01 Tubal Ligation completed Teresa Batres MA [facility] 02/16/2016 16:21:58 Tonsillectomy completed Teresa Batres MA [facility] 02/16/2016 16:04:44 Imaging Results None recorded. Procedure Notes None recorded. Medical Equipment None Reported. Allergies No known drug allergies Medications Name Sig Start Date Stop Date Status Note LastModified by Organization Details LastModified Time multivitamin tablet Take 1 tablet every day by oral route. 2016 active Not Available Not Available Not Avai lable metronidazole 500 mg tablet Take 1 tablet twice a day by oral route for 10 days. 2016 active Not Available Not Available Not Avai lable Myrbetriq 25 mg tablet,extended release Take 1 tablet every day by oral route. 2015 active Not Available Not Available Not Avai lable calcium 600 mg (as carbonate)-uzair min D3 20 mcg (800 unit) tablet Take 1 tablet twice a day by oral route for 30 days. 2016 active Not Available Not Available Not Avai lable Contrave 8 mg-90 mg tablet,extended release Take 2 tablets twice a day by oral route. 2016 active Not Available Not Available Not Avai lable Vitals Date Recorded Body weight Body height Body mass index (BMI) Systolic blood pressure Diastolic blood pressure Provider Name and Address Organization Details Last Updated DateTime 02/16/2016 64158.84 949 g 160.02 cm 31.4 kg/m2 130 mm[Hg] 90 mm[Hg] Teresa Batres MA [facility] 6 16:25:04 Date Recorded Body weight Body mass index (BMI) Systolic blood pressure Diastolic blood pressure Provider Name and Address Organization Details Last Updated DateTime 03/21/2017 05104.75 g 24.4 kg/m2 138 mm[Hg] 68 mm[Hg] Yaima Dunn MA [facility] 03/21/2017 15:21:42 Date Recorded Body height Provider Name an d Address Organization Details Last Updated DateTime 03/21/2017 160.02 cm Teresa Batres MA [facility] 03/21/2017 14:29:14 Social History Question Answer Notes LastModified by Organizat ion Details LastModified Time Tobacco Smoking Status Former Smoker Teresa Batres MA null, [facility] 02/16/2016 16:21:58 Do You Have An Advance Directive? No Information not available 02/16/2016 Is Blood Transfusion Acceptable In An Emergency? Yes Information not available 02/16/2016 What Is Your Level Of Caffeine Consumption? Heavy Information not available 02/16/2016 How Much Tobacco Do You Chew? None Information not available 02/16/2016 What Type Of Diet Are You Following? REGULAR Information not available 02/16/2016 Education 2 Year College Information not available 02/16/2016 Live Alone Or With Others? With Others Information not available 02/16/2016 How Many Children Do You Have? 2 Information not available 02/16/2016 Performs Monthly Self-breast Exam? Yes Information no t available 02/16/2016 What Is Your Relationship Status? Information not available 02/16/2016 Seat Belts Used Routinely Yes Information not available 02/16/2016 Are You Sexually Active? No Information not available 02/16/2016 At What Age Did You Start Smoking Tobacco? 16 Information not available 02/16/2016 How Much Tobacco Do You Smoke? 0.25 PPD Information not available 02/16/2016 General Stress Level Medium Information not available 02/16/2016 Do You Use Sunscreen Routinely? Yes Information not available 02/16/2016 How Many Years Have You Smoked Tobacco? 2 Information not available 02/16/2016 Sex: Unknown Functional Status Question Answer Note LastModified by Organizat ion Details LastModified Time What is your level of alcohol consumption? Occasional Information not available 02/16/2016 Are you currently employed? 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 None Information not available 02/16/2016 Mental Status None recorded. Family History Relationship Description Onset Age of this Age Resolved Age Notes LastModified by Organization Details LastModified Time Mother Malignant tumor of breast [email or web address] Not available 02/16 02:56:42 Mother Malignant neoplasm of uterus [email or web address] Not available 02/16 02:56:42 Sister Malignant tumor of cervix [email or web address] Not available 02/16 02:56:42 Sister Hypercholest erolemia mwasserman Not available 02/16 02:56:42 Sister Migraine [email or web address] Not availab le 02/17/2016 02:56:42 Sister Endometritis [email or web address] Not ryne ilable 02/17/2016 02:56:42 Medical History Condition Response Other N High Blood Pressure N Breast Cancer N Lung Disease N Depression Y Blood Clots N Breast Problem N Anesthesia Complications N Headaches/Migraines N Anxiety Disorder Y Muscle, Joint, or Bone Problems N Polyps N Infertility N Acid Reflux (GERD) N Cancer N Endometriosis N High Cholesterol N Liver Disease N Kidney or Bladder Problems N Thyroid Problems N GI Problems N Acne N Eating Disorder N Anemia N Ovarian Cancer N Diabetes N Blood Transfusions N Seizures/Epilepsy N Abuse/Domestic Violence N Asthma N Hepatitis N Heart Disease N Pre-Eclampsia N Osteoporosis N Gynecological History Statement/Question Response Abnormal Pap N Flow Moderate On BCP's at Conception? N STIs/STDs N HPV Vaccine N Duration of Flow (days) 4 Most Recent Mammogram 02/22/2016 Age at Menarche 11 Current Control Method Tubal Ligat ion Age at First Child 14 Sexually Active? N Menses Monthly Y Date of Last Pap Smear 02/16/2016 Sexual Problems? N LMP Approximate Desired Control Method None Obstetrics History GPAL:G 2 P 2 0 0 2 Type Value Multiple Births 0 Full Term 2 Induced 0 Spontaneous 0 Premature 0 Living 2 Ectopics 0 Total 2 Past Encounters Encounter ID Performer Location Encounter Start Date Encounter Closed Date Diagnosis/Indication Diagnosis SNOMED-CT Code Diagnosis ICD10 Code Diagnosis Note [id number] MD Sunny Saravia (RESTORATION TECHNICIAN) [address] [place] [address] [phone] 02/16/2016 15:21:09 02/17/2016 02:57:51 Gynecologic examination 77731026 Z01.419 Z11.51 Depressive disorder 3548 9007 F32.9 Breast lump 86889711 N63 positive family history of breast cancer-MOM Bladder mu scle dysfunction - overactive 610534092 N32.81 Cystocele 345071058 N81. 10 Overweight 074556138 E66 .3 [id number] Cristopher Huber MD [facility] (RESTORATION TECHNICIAN) [address] [place] [address] [phone] 03/21/2017 14:09:14 03/21/2017 17:43:17 Gynecologic examination 57825381 Z11.51 Screening mammography 24 738635 Z12.31 Fibrocysti c disease of breast 36502981 N60.19 Bladder mu scle dysfunction - overactive 592520866 N32.81 Health Concerns Section Related Observation LastModified by Organization Detai ls LastModified Time None Recorded Concern Status LastModified by Organization Details LastModified Time None Recorded Advance Directives Directive N: Payers Encounter Date Sequence Insurance Name Policy Number Policy Lopez Covered Member ID Lopez Member ID Guarantor Name 02/16/2016 1 [employer] - DOS PRIOR TO 21 - [facility] BENEFITS PLAN Beryl Neutzling [id number] Beryl Neutzling 03/21/2017 1 [employer] - DOS PRIOR TO 21 - [facility] BENEFITS PLAN Beryl Neutzling [id number] Beryl Neutzling Notes Date Note Type Note Provider Name and Address Organization Details Recorded Time 02/16/2016 text/html Breast PainReported bypatient.Location :left; at the nipple Onset/Timin-4 weeks Duration:constant Quality:sharp; aching Severity:moderate Context:family history of breast cancer Associated Symptoms:no fever; no chills; no skin redness; no nipple discharge; no sore nipples; breasts not full, sore, unable to express milk; no breast swelling; no arm pain; no arm swelling; no chest pain; no malaise; no breast lumpNotes:45 y/o WF complaint of uterine prolapse and left breast painGU problems-FemaleRep orted bypatient.Notes:45 y/o WF complaint of uterine prolapse and left breast pain KAYLEEN Bowen - [facility] 02/17/2016 02:56:54 03/21/2017 text/html Annual GYNReport ed bypatient.Menstrua l cycle:Normal menses Urinary symptoms:No hematuria; No incontinence Vulva:No genital lesion Vagina:Normal vaginal discharge Breast:No breast pain; No breast lump; No nipple discharge; h/o of benign cyst of left breast Current Contraception:Tuba l ligation Sexual complaints:No sexual complaints; No pain during intercourse; Normal libido Menopausal Symptoms:No menopausal symptoms; Normal vaginal lubrication Psychological symptoms:No depression; No anxiety; No PMDD Preventive measures:Encourage self breast examination; Encourage regular exercise; Encourage no tobacco use; Followed with Q3 year pap smear and high risk HPV typing; Mammogram performed within the past year 46 yof, , here for annual wwe KAYLYN Baltazar, [place] - [facility] 03/23/2017 10:57:24 OBGyn Episode Ob Episode Information Episode Created Date Number of Fetuses Patient Bloodtype Patient rh Status Prepregnancy Weight lbs Domestic Partner Domestic Partner Phone Father Name Export Freight Specialist Status 02/16/20 16 1 CLOSED Fetus Data First Name Last Name Admitted to NICU Weight (g) Sex Living Outcome Pediatric Complications Fetus ID Race Codes Race Delivery Type 3203.49 33 F Full Term [id number] Standard Vaginal Delivery Hardy Calculation Initial Hardy Date Initial Exam Date Initial Exam Provider Initial Ultrasound Date Last Menstrual Period Date Ultra Sound Weeks Gestation 0 Eighteen To Twenty Week Hardy Update Ultra Sound Date Fundal Height At Umbil Quickening Date Ultra Sound Latest Weeks Gestation Final Hardy Confirmed By Final Hardy Confirmed Date Final Hardy Date Ultra Sound Latest Days Gestation 0 0 Menstrual History Last Menstrual Date Menses Monthly On Bcp Conception Prior Menses Frequency Hcg Plus Date Menarche Onset Age Delivery Information Delivery Date Delivery Type Labor Anesthesia Weeks Gestation Incision Type Labor Labor Length Hrs Delivered By Post Complications Tubal Sterilization Discharge Date Comments 7 None 38 false 6 Discharge Information Feeding Method Contraceptive Method Maternal HG B and HCT Levels Ob Episode Information Episode Created Date Number of Fetuses Patient Bloodtype Patient rh Status Prepregnancy Weight lbs Domestic Partner Domestic Partner Phone Father Name Export Freight Specialist Status 02/16/20 16 1 CLOSED Fetus Data First Name Last Name Admitted to NICU Weight (g) Sex Living Outcome Pediatric Complications Fetus ID Race Codes Race Delivery Type 3742.13 4 M Full Term [id number] Standard Vaginal Delivery Hardy Calculation Initial Hardy Date Initial Exam Date Initial Exam Provider Initial Ultrasound Date Last Menstrual Period Date Ultra Sound Weeks Gestation 0 Eighteen To Twenty Week Hardy Update Ultra Sound Date Fundal Height At Umbil Quickening Date Ultra Sound Latest Weeks Gestation Final Hardy Confirmed By Final Hardy Confirmed Date Final Hardy Date Ultra Sound Latest Days Gestation 0 0 Menstrual History Last Menstrual Date Menses Monthly On Bcp Conception Prior Menses Frequency Hcg Plus Date Menarche Onset Age Delivery Information Delivery Date Delivery Type Labor Anesthesia Weeks Gestation Incision Type Labor Labor Length Hrs Delivered By Post Complications Tubal Sterilization Discharge Date Comments 4 None 37 false 12 Discharge Information Feeding Method Contraceptive Method Maternal HG B and HCT Levels
--- OUTSIDE RECORDS SUMMARY | 2025-03-23 01:04 | XMS_ITS | Clinical Summary ---
Author Organization [facility] [employer] Address [address] [place] [address] Care Team Providers Care Code Inspector Name Role Phone Unavailable Primary Care Provider Unavailabl e Source Comments [facility] [employer],non-owned Affiliates and Associated Physician Practices is amultiple site organization consisting of ambulatory clinics and hospital sitesin [place], [place], [place] and [place]. This disclosure is being madepursuant to the Care Everywhere program and may not contain all information available regarding this patient. Last updated [employer] Allergies No known active allergies Medications * Be aware that medications may not be up to date on this document. Alwaysverify current medications with the patient. 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 Gender Identity Not on file Sexual Orientation Not on file Last Filed Vital Signs Vital Sign Reading Time Taken Comments Blood Pressure 104/64 04/16/2020 9:00 AM CDT Pulse 65 04/16/2020 9:00 AM CDT Temperature 36.7 C (98.1 F) 04/16/2020 9:00 AM CDT Respiratory Rate 15 04/16/2020 9:00 AM CDT Oxygen Saturation 97% 04/16/2020 9:00 AM CDT Inhaled Oxygen Concentration - - Weight 63.5 kg (140 lb) 04/16/2020 9:00 AM CDT Height 160 cm (5' 3) 04/16/2020 9:00 AM CDT Body Mass Index 24.8 04/16/2020 9:00 AM CDT Plan of Treatment Health Maintenance Due Date Last Done Comments COLOGUARD (AGES 45-75) - COL ON CA SCREENING 1968 COLON MONITORING 1968 COLONOSCOPY - COLON CA SCREENING 1968 CT COLONOGRAPHY - COLON CA SCREENING 1968 Colorectal Cancer Screening 1968 FIT - COLON CA SCREENING 1968 FLEX SIG - COLON CA SCREENING 1968 LIPID TESTING 1968 MAMMOGRAM 1968 HIV SCREENING 1983 HEPATITIS C SCREENING 03/30/1986 DTAP/TDAP/TD VACCINES (1 - Tdap) 1987 HEPATITIS B VACCINE (1 of 3 - 19+ 3-dose series) 1987 PNEUMOCOCCAL VACCINE 50+ (1 of 1 - PCV) 2018 ZOSTER VACCINE (1 of 2) 2018 COVID-19 VACCINE (1 - 2023-2 5 season) 2024 DEPRESSION SCREENING 10/22/2024 INFLUENZA VACCINE (Season Ended) 2025 HIB VACCINE Aged Out No longer eligi ble based on patient's age to complete this topic HPV VACCINE Aged Out No longer eligi ble based on patient's age to complete this topic MENINGOCOCCAL (Group B) VACC INE SHARED DECISION-MAKING Aged Out No longer eligibl e based on patient's age to complete this topic MENINGOCOCCAL GROUPS A/C/Y/W VACCINE Aged Out No longer eligible b ased on patient's age to complete this topic Insurance [employer]
--- OUTSIDE RECORDS SUMMARY | 2025-03-23 01:04 | XMS_ITS | Encounter Summary ---
Author Organization [facility] Address [address] [place] [address] Care Team Providers Care Precision Layout Worker Name Role Phone Jose Recinos DO Primary Care Provider [phone]- [phone] Jose Recinos DO Unavailable [phone] Encounter Details Date Type Department Care Team (Late st Contact Info) Description 02/06/2017 Orders Only [facility] Provider, MD [address] [place] [address] Social History Tobacco Use Types Packs/Day Years Used Date Smoking Tobacco: Never Assessed Comments Unknown Sex and Gender Information Value Date Recorded Sex Assigned at Not on file Legal Sex Female 5:46 PM CDT Gender Identity Not on file Sexual Orientation Not on file documented as of this encounter Plan of Treatment Not on file documented as of this encounter Procedures Procedure Name Priority Date/Time Associated Diagnosis Comments CARDIOLOGY REPORT 02/06/2017 documented in this encounter Results * CARDIOLOGY REPORT (02/06/2017) Anatomical Region Laterality Modality Other Narrative 02/06/2017 Ordered by an unspecified provider. Historical Provider [facility] Final Result documented in this encounter Visit Diagnoses Not on filedocumented in this encounter Care Teams Precision Layout Worker Relationship Specialty Start Date End Date Jose Recinos DO PCP - General 01/19/17 Jose Recinos DO 01/19/17 documented as of this encounter
[2025-03-23 08:25] VITALS: BP 122/76; PULSE 75; RESP 16; TEMP 36.2; O2SAT 100; BMI 23.3
[2025-03-23] MEDS: LACTATED RINGERS 1,000 ML 150 ML IV CONT (08:43)
--- NOTE | 2025-03-23 09:09 | P.PNAN_ITS ---
Anes - Initial Pre Proc Eval Procedure: Operation Date: 03/23/25 10:00 Proposed Procedures p Colonoscopy - Wicho Morris MD Date/Time: 03/23/25 09:09 Surgeon: Wicho Morris MD Pre Op Diagnosis: Personal history of colon polyps, unspecified Patient Data Age: 54 Gender: F Height: 1.6 m Weight: 59.6 kg Last Vital Signs Temp 36.2 C L 03/23/25 08:25 Pulse 75 03/23/25 08:25 Resp 16 03/23/25 08:25 BP 122/76 03/23/25 08:25 Pulse Ox 100 03/23/25 08:25 O2 Del Method Room Air 03/23/25 08:25 Allergies Allergy/AdvReac Type Severity Reaction Status Date / Time No Known Allergies Allergy Verified 03/23/25 08:33 Home Medications ?Medication ?Instructions ?Recorded ?Confirmed ?Type cetirizine 10 mg tablet (Zyrtec) 10 mg PO DAILY #90 tabs 12/12/23 03/23/25 Rx fluticasone propionate 50 1 spray intranasal DAILY #15.8 mL 07/17/24 03/23/25 Rx mcg/actuation nasal spray,suspension rosuvastatin 20 mg tablet 20 mg PO DAILY #90 tabs 12/08/24 03/23/25 Rx aspirin 81 mg tablet,delayed 81 mg PO DAILY 12/15/24 03/23/25 History release alprazolam 0.5 mg tablet 0.5 mg PO BID #20 tabs 01/14/25 03/23/25 Rx Patient hx anesthesia problems: none Family hx anesthesia problems: none Results Review: All pre-operative results and documents have been reviewed as part of the pre-operative evaluation. [facility] Past Medical History Medical History Marijuana smoker Nausea and vomiting in adult Cyclic vomiting syndrome Anxiety Headache Migraine Allergies Urine incontinence Bladder sling, 2016 Tonsillectomy planned 1977 Cholecystectomy planned 2016 Surgical History Surgical History History of hysterectomy 2016 Family History Family History Mother Breast cancer Parkinsons disease Social History Social History Smoking status: Former smoker Alcohol intake: former Substance use: current Substance use type: marijuana Other substance usage details: 3-4 TIMES PER WEEK Do You Feel Safe in your Home?: Yes Lack of Transportation: No Lack of Food: Never True Current Housing: I Have Housing Concerned About Future Housing: No Difficulty Paying Gas/Electric Bills: No Difficulty Paying for Meds: No Currently Unemployed: No Education: High School Diploma/GED Difficulty w/ Childcare or Family Care: No Living arrangements: with family Spiritual care concerns: No Anes - Eval Final PreProcedure Day of Procedure 03/23/25 09:09 Patient weight: normal Heart: regular rate and rhythm Lungs: clear to auscultation Airway: Mallampati scale class II Neurological: alert and oriented Last oral intake: >/= 8 hours ASA classification: II Emergent: no Anesthetic plan: proceed Anesthesia type and monitoring: general GIVS and standard monitoring Results Review: All pre-operative results and documents have been reviewed as part of the pre- operative evaluation. Informed Consent: The patient's anesthetic plan and its attendant risks and benefits were discussed with the patient/family/POA. Questions were solicited and answers provided to the satisfaction of the patient/family/POA.
--- NOTE | 2025-03-23 09:29 | PM.HPGS ---
History of Present Illness History of Present Illness Consent: Risks, benefits, and alternatives have been discussed and questions answered. Patient agrees to proceed with procedure. Chief complaint: Personal history of colon polyps, unspecified Narrative: Beryl Farfan is a 54 year old female with colon polyp 3 years ago Review of Systems Review of Systems: All systems reviewed & are unremarkable except as noted in HPI and below PMFSH Past Medical History Medical History Marijuana smoker Nausea and vomiting in adult Cyclic vomiting syndrome Anxiety Headache Migraine Allergies Urine incontinence Bladder sling, 2016 Tonsillectomy planned 1977 Cholecystectomy planned 2016 Surgical History Surgical History History of hysterectomy 2016 Family History Family History Mother Breast cancer Parkinsons disease Social History Social History Smoking status: Former smoker Alcohol intake: former Substance use: current Substance use type: marijuana Other substance usage details: 3-4 TIMES PER WEEK Do You Feel Safe in your Home?: Yes Lack of Transportation: No Lack of Food: Never True Current Housing: I Have Housing Concerned About Future Housing: No Difficulty Paying Gas/Electric Bills: No Difficulty Paying for Meds: No Currently Unemployed: No Education: High School Diploma/GED Difficulty w/ Childcare or Family Care: No Living arrangements: with family Spiritual care concerns: No Meds Home Medications and Allergies Home Medications ?Medication ?Instructions ?Recorded ?Confirmed ?Type cetirizine 10 mg tablet (Zyrtec) 10 mg PO DAILY #90 tabs 12/12/23 03/23/25 Rx fluticasone propionate 50 1 spray intranasal DAILY #15.8 mL 07/17/24 03/23/25 Rx mcg/actuation nasal spray,suspension rosuvastatin 20 mg tablet 20 mg PO DAILY #90 tabs 12/08/24 03/23/25 Rx aspirin 81 mg tablet,delayed 81 mg PO DAILY 12/15/24 03/23/25 History release alprazolam 0.5 mg tablet 0.5 mg PO BID #20 tabs 01/14/25 03/23/25 Rx Allergies Allergy/AdvReac Type Severity Reaction Status Date / Time No Known Allergies Allergy Verified 03/23/25 08:33 Vital Signs Vital Signs - 24 hr 03/23/25 08:25 Temperature 97.1 F L Pulse Rate 75 Respiratory Rate 16 Blood Pressure 122/76 Pulse Oximetry 100 Oxygen Delivery Room Air Exam Const: General: comfortable and no acute distress HENMT: Face/Nose/Sinus: Normal nares present Eyes: General: appearance normal, both eyes and all related structures Neck: Neck: no JVD Resp: Auscultation: clear to auscultation bilaterally Cardio: Rate: regular rate Rhythm: regular rhythm GI: Inspection: non-distended GI Palp: Yes Soft to palpation Skin: General skin exam: normal color Neuro: General: gait normal Speech: normal speech Extrem: General: normal to inspection Psych: Mental Status: mental status grossly normal Assessment and Plan Assessment and plan (1) History of colon polyps: Code(s): Z86.010 - Personal history of colon polyps Status: Acute Assessment and Plan: colonoscopy
--- NOTE | 2025-03-23 09:54 | S_PTH ---
PATIENT: Beryl Farfan LOC: [facility] Gutierrez#:[id number] AGE/SX: 54/F ROOM: RE03/23/[address]: Wicho Morris MD : 1970 BED: DIS: 03/23/2025 SPEC #: [id number] RECD: 03/23/25 10:21 STATUS: ANMOL BALTAZAR #: [id number] NEIL: 03/23/25 09:[address]: Wicho Morris DEPT: [facility] Surgical RECD BY: Yen Meadows ENTERED: 03/23/25 10:22 SP TYPE: Surgical OTHR DR: Jose Recinos DO Tissues: A - Colon Polypectomy B - Colon Polypectomy Procedures: Hematoxylin and Eosin Stain Gross and Microscopic Level 4
[2025-03-23 09:55] VITALS: BP 148/77; PULSE 61; RESP 23; O2SAT 100
[2025-03-23 10:05] VITALS: BP 161/90; PULSE 62; RESP 15; O2SAT 100
[2025-03-23 10:15] VITALS: BP 164/93; PULSE 67; RESP 13; O2SAT 100
[2025-03-23] MEDS: ONDANSETRON HCL ODT 4 MG TABLET PO (10:25)
== END 2025-03-23 10:36 | disposition home or self-care (01) ==
PROVIDERS: PCP Internal Medicine; Referring Provider Nurse Practitioner; Visit Provider Internal Medicine Gastroenterology
PROC: 0DJD8ZZ Inspection of Lower Intestinal Tract, Via Natural or Artificial Opening Endoscopic (ICD-10-PCS; CPT 45378; principal; 2025-03-23 10:00)
DX: Z12.11 Encounter for screening for malignant neoplasm of colon (principal); D12.0 Benign neoplasm of cecum; D12.4 Benign neoplasm of descending colon; K57.30 Diverticulosis of large intestine without perforation or abscess without bleeding; K64.8 Other hemorrhoids
CPT/HCPCS: 45385; 88305; A9270; J2704; J7120